=== PATIENT | female | born 1940 | race Caucasian/White ===

== ENCOUNTER 2023-09-04 09:15 | Day surgery (SDC) | payer MEDICARE, OTHER ==
[2023-08-31 11:02] LABS: BASOPHILS # (AUTO) 0.1 X10'3 (0-0.2); EOSINOPHILS # (AUTO) 0.1 X10'3 (0-0.9); EOSINOPHILS % (AUTO) 1.3 % (0-6); HEMATOCRIT 44.3 % (35.0-45.0); HEMOGLOBIN 14.7 g/dl (12.0-16.0); LYMPHOCYTES # (AUTO) 0.8 X10'3 (1.1-4.8); MEAN CORPUSCULAR HEMOGLOBIN 30.4 PG (27.0-31.0); MEAN CORPUSCULAR HGB CONC 33.1 g/dL (33.0-36.5); MEAN CORPUSCULAR VOLUME 91.8 FL (78-98); MONOCYTES # (AUTO) 0.7 X10'3 (0-0.9); MONOCYTES % (AUTO) 10.1 % (2-12); NEUTROPHILS # (AUTO) 4.9 X10'3 (1.8-7.7); NEUTROPHILS % (AUTO) 75.6 % (42-75); PLATELET COUNT 343 X10'3 (140-440); RED BLOOD COUNT 4.83 X10'6 (4.20-5.60); RED CELL DISTRIBUTION WIDTH 13.7 % (11.5-14.5); WHITE BLOOD COUNT 6.5 X10'3 (4.5-11.0)
[2023-08-31 11:12] LABS: APTT 31 SECONDS (22-32); INR 1.1 INR; PROTHROMBIN TIME 11.7 SECONDS (9.0-12.0)
[2023-08-31 11:25] LABS: ALBUMIN 3.6 G/DL (3.4-5.0); ANION GAP 7 (8-16); BLOOD UREA NITROGEN 19 MG/DL (7-18); CALCIUM 9.6 MG/DL (8.5-10.1); CHLORIDE 99 MMOL/L (99-107); CREATININE 0.95 MG/DL (0.40-0.90); GLUCOSE 103 MG/DL (70-104); POTASSIUM 3.6 MMOL/L (3.5-5.1); SODIUM 135 MMOL/L (135-145); TOTAL CARBON DIOXIDE 29.1 MMOL/L (24-32); eGFR 56 ML/MIN
[2023-09-04] VITALS (12 sets, daily range): BP systolic 111–153; BP diastolic 65–93; PULSE 66–95; RESP 16; TEMP 98.1; O2SAT 95–100
[~2023-09-04] VITALS: Ht 157.5 cm; Wt 90.5 kg
[2023-09-04] MEDS ORDERED: METO25TA6 PO (09:58)
[2023-09-04] MEDS ORDERED: AMI200T PO (09:58)
[2023-09-04] MEDS ORDERED: PANT40TA54 PO (09:58)
[2023-09-04] MEDS ORDERED: CHLO25TA10 PO (09:58)
[2023-09-04] MEDS ORDERED: APIX5TAB3 PO (09:58)
[2023-09-04] MEDS ORDERED: LISI20TA28 PO (09:58)
[2023-09-04] MEDS ORDERED: ATOR40TA72 PO (09:58)
[2023-09-04] MEDS: MIDAZolam 1mg/ml 10ml vial IV ONE (10:30)
[2023-09-04] MEDS: fentaNYL/PF 50MCG/1 ML 2ML syringe IV ONE (10:30)
[2023-09-04] MEDS: normal saline 1000ml 1,000 ML IV SCH (10:30)
== END 2023-09-04 15:25 | disposition home or self-care (01) ==
LOC: SSTAY O 09:15
PROVIDERS: ATTEND Student in an Organized Health Care Education/Training Program
DX: I48.91 Unspecified atrial fibrillation (principal); I44.7 Left bundle-branch block, unspecified; I49.1 Atrial premature depolarization; I10 Essential (primary) hypertension; E78.00 Pure hypercholesterolemia, unspecified; Z79.01 Long term (current) use of anticoagulants; Z79.899 Other long term (current) drug therapy; Z91.013 Allergy to seafood; Z88.2 Allergy status to sulfonamides
CPT/HCPCS: 36415; 80048; 85025; 85610; 85730; 92960; 93005; A6258; J2250; J3010; J7030